=== PATIENT | female | born 1985 | race Caucasian/White ===

== ENCOUNTER 2018-11-16 13:15 | Emergency (ER) | payer OTHER ==
[2018-11-16 13:45] VITALS: BP 142/89
--- NOTE | 2018-11-16 13:56 | UC ---
General HPI - HPI Summary HPI Summary: AROUND 11:15AM, PT FELL WHILE AT WORK AND INJURED HER L PINKY WHILE TRYING TO CATCH A FOOTBALL. - History of Current Complaint Chief Complaint: UCUpperExtremity Stated Complaint: LT PINKY INJURY WC Time Seen by Provider: 11/16/18 13:49 Hx Obtained From: Patient Hx Last Menstrual Period: unknown Onset/Duration: Sudden Onset Timing: Constant Pain Intensity: 5 Associated Signs & Symptoms: Positive: Edema, Other - BRUSING - Allergy/Home Medications Allergies/Adverse Reactions: Allergies Allergy/AdvReac Type Severity Reaction Status Date / Time No Known Allergies Allergy Verified 11/16/18 13:34 Home Medications: Home Medications Cholecalciferol TAB* [Vitamin D TAB*] 2,000 units PO DAILY 11/16/18 [History Confirmed 11/16/18] Cyanocobalamin TAB* [Vitamin B12 TAB*] 1,000 mcg PO DAILY 11/16/18 [History Confirmed 11/16/18] Norethindr/Eth Estradiol(Nf) [Lo Loestrin Fe (NF)] 1 tab PO DAILY 11/16/18 [ History Confirmed 11/16/18] Sertraline* [Zoloft*] 25 mg PO SEE INSTRUCTIONS 11/16/18 [History Confirmed ] traZODone TAB* [Desyrel TAB*] 50 mg PO BEDTIME 11/16/18 [History Confirmed 11/16] PMH/Surg Hx/FS Hx/Imm Hx Previously Healthy: Yes - Surgical History Surgical History: None - Social History Occupation: Employed Full-time Alcohol Use: None Substance Use Type: None Smoking Status (MU): Never Smoked Tobacco Review of Systems All Other Systems Reviewed And Are Negative: Yes Constitutional: Positive: Negative Skin: Positive: Negative Eyes: Positive: Negative ENT: Positive: Negative Respiratory: Positive: Negative Cardiovascular: Positive: Negative Gastrointestinal: Positive: Negative Genitourinary: Positive: Negative Motor: Positive: Negative Neurovascular: Positive: Negative Neurological: Negative: Weakness, Paresthesia, Numbness Psychological: Positive: Negative Physical Exam Triage Information Reviewed: Yes Appearance: Well-Appearing Vital Signs: Initial Vital Signs Temp 98.6 F 11/16/18 13:37 Pulse 61 11/16/18 13:37 Resp 14 11/16/18 13:37 BP 142/89 11/16/18 13:37 Pulse Ox 100 01/29/19 13:37 Vital Signs Reviewed: Yes Eyes: Positive: Conjunctiva Clear ENT: Positive: Normal ENT inspection Neck: Positive: Supple Respiratory: Positive: Lungs clear Cardiovascular: Positive: RRR Abdomen Description: Positive: Nontender Bowel Sounds: Positive: Present Musculoskeletal: Positive: Other: - LUE: HAND=PINKY AND ADJACENT HAND WITH SWELLING AND BRUISING. AREAS ARE TENDER. FINGERS HAVE GROSS S/V INTACT. REST OF ARM IS ATRAUMATIC INCLUDING THE WRIST AND HAND WHICH ARE ATRAUMATIC. Neurological: Positive: Alert Psychological: Positive: Age Appropriate Behavior Skin Exam: Normal Skin: Negative: Rashes Procedures - Splinting Left 5th Digit Pre-Made Type: metal Splint: volar Pre-Proc Neuro Vasc Exam: normal Post-Proc Neuro Vasc Exam: normal Diagnostics - Radiology No standard instances Radiology Interpretation Completed By: Radiologist - SLIGHTLY DISPLACED VOLAR PLATE FRACTURE BASE OF THE FIFTH MIDDLE PHALANX. Course/Dx - Course Course Of Treatment: SLIGHT DISPLACED CHIP FX L 5TH MIDDLE PHALANX. WILL SPLINT AND REFER TO ORTHOPEDICS. PT REQUESTING [facility]. - Differential Dx - Multi-Symptom Differential Diagnoses: Other - SPRAIN, FRACTURE. - Diagnoses Provider Diagnosis: Fracture of phalanx of left little finger Discharge - Sign-Out/Discharge Documenting (check all that apply): Patient Departure All imaging exams completed and their final reports reviewed: Yes - Discharge Plan Condition: Stable Disposition: HOME Patient Education Materials: Finger Fracture (ED) Referrals: Carlota Torres PA [Primary Care Provider] - Additional Instructions: USE SPLINT UNTIL CLEARED. FOLLOW UP WITH YOUR ORTHOPEDIST AT [facility] SOON POSSIBLE. - Billing Disposition and Condition Condition: STABLE Disposition: Home
== END 2018-11-16 15:02 | disposition home or self-care (01) ==
LOC: UCCORT 13:15
DX: S62.627A Displaced fracture of middle phalanx of left little finger, initial encounter for closed fracture (principal); W19.XXXA Unspecified fall, initial encounter; Y92.9 Unspecified place or not applicable; Y99.0 Civilian activity done for income or pay
CPT/HCPCS: 26720; 99201; G0463